=== PATIENT | male | born 1995 | race Caucasian/White ===

== ENCOUNTER 2025-07-15 08:30 | Emergency (ER) | payer BC, OTHER ==
[~2025-07-15] VITALS: Ht 185.4 cm; Wt 95.3 kg
[2025-07-15] MEDS ORDERED: KETOROLAC TROMETHAMINE 15 MG/ML VIAL ONE ×2 (08:58)
[2025-07-15] MEDS: IV NS 0.9% 500 ML BAG IV ONE (09:02)
[2025-07-15] MEDS: KETOROLAC TROMETHAMINE 15 MG/ML VIAL IV ONE (09:04)
[2025-07-15 09:05] LABS: PLATELET COUNT (AUTO) 153 K/uL (150-450); RED BLOOD CELL COUNT(AUTO) 4.86 MIL/uL (4.5-6.0); RED CELL DISTRIBUTION WIDTH 12.7 % (11.5-15.0); WHITE BLOOD COUNT (AUTO) 3.8 K/uL (4.3-11.0)
[2025-07-15 09:13] LABS: CALCIUM, SERUM 9.2 mg/dL (8.5-10.1); CREATININE 1.1 mg/dL (0.6-1.3); SODIUM SERUM 141.0 mmol/L (136-145); UREA NITROGEN, BLOOD 13.0 mg/dL (7-18)
[2025-07-15 09:18] LABS: ASPARTATE AMINOTRANSFERASE 23.0 U/L (15-37); TOTAL PROTEIN, SERUM 7.4 g/dL (6.4-8.2)
[2025-07-15] MEDS ORDERED: NAPR-1164 PO (09:27)
[2025-07-15 10:00] VITALS: BP 150/97; TEMP 98.3; O2SAT 100
== END 2025-07-15 10:01 | disposition home or self-care (01) ==
LOC: ER 08:39
DX: R09.1 Pleurisy (principal)
CPT/HCPCS: 99285; 96374; 71045; 96361; 93005; 85025; 80048; 83690; 80076; 36415; J1885 ×2; J7040

== ENCOUNTER 2025-07-28 15:19 | Emergency (ER) | payer BC ==
[~2025-07-28] VITALS: Ht 182.9 cm; Wt 95.3 kg
[~2025-07-28 15:19] MED LIST: NAPR-1164 PO
[2025-07-28 16:37] LABS: APPEARANCE,URINE CLEAR (CLEAR); BLOOD, URINE Negative Ery/uL (NEGATIVE); LEUKOCYTE ESTERASE ,URINE Negative (NEGATIVE); NITRITE, URINE NEGATIVE (NEGATIVE); UGLUCOSE Negative (NEGATIVE)
[2025-07-28] MEDS: IV NS 0.9% 1,000 ML BAG IV ONE (16:40)
[2025-07-28] MEDS ORDERED: KETOROLAC TROMETHAMINE INJ 30 MG/ML VIAL ONE (16:43)
[2025-07-28 16:46] LABS: PLATELET COUNT (AUTO) 161 K/uL (150-450); RED BLOOD CELL COUNT(AUTO) 4.93 MIL/uL (4.5-6.0); RED CELL DISTRIBUTION WIDTH 12.5 % (11.5-15.0); WHITE BLOOD COUNT (AUTO) 4.9 K/uL (4.3-11.0)
[2025-07-28] MEDS: KETOROLAC TROMETHAMINE INJ 30 MG/ML VIAL IV ONE (16:50)
[2025-07-28 16:54] LABS: CALCIUM, SERUM 9.0 mg/dL (8.5-10.1); CREATININE 0.9 mg/dL (0.6-1.3); SODIUM SERUM 139 mmol/L (136-145); UREA NITROGEN, BLOOD 10 mg/dL (7-18)
[2025-07-28 17:00] LABS: ASPARTATE AMINOTRANSFERASE 18 U/L (15-37); TOTAL PROTEIN, SERUM 7.4 g/dL (6.4-8.2)
[2025-07-28] MEDS ORDERED: KETO10TA2 PO (17:13)
[2025-07-28 18:10] VITALS: BP 142/90; TEMP 98.3; O2SAT 100
== END 2025-07-28 18:11 | disposition home or self-care (01) ==
LOC: ER 15:21
DX: K63.89 Other specified diseases of intestine (principal); Q43.8 Other specified congenital malformations of intestine
CPT/HCPCS: 99285; 74176; 96374; 96361; 93005; 85025; 80048; 83690; 80076; 81003; 36415; 84484; J1885; J7030; 87086-TC